=== PATIENT | female | born 1965 | race Caucasian/White ===

== ENCOUNTER 2023-02-09 14:34 | Emergency (ER) | payer OTHER ==
[~2023-02-09] VITALS: Ht 147.3 cm; Wt 74.8 kg
[2023-02-09] MEDS ORDERED: IBUPROFEN 800 MG TABLET PO ONE (15:15)
[2023-02-09 15:16] VITALS: BP_SYST 148
[2023-02-09] MEDS ORDERED: DICL20GE TP (17:42)
[2023-02-09] MEDS ORDERED: IBUP-1971 PO (17:42)
[2023-02-09] MEDS ORDERED: IBUPROFEN 800 MG TABLET ONE (17:46)
[2023-02-09 17:51] VITALS: BP_SYST 132
== END 2023-02-09 17:51 | disposition home or self-care (01) ==
LOC: SED 14:34
DX: S46.912A Strain of unspecified muscle, fascia and tendon at shoulder and upper arm level, left arm, initial encounter (principal); Z79.899 Other long term (current) drug therapy; X50.0XXA Overexertion from strenuous movement or load, initial encounter; Y93.89 Activity, other specified; Y92.89 Other specified places as the place of occurrence of the external cause; Y99.8 Other external cause status
CPT/HCPCS: 73030; 93971; 99284

== ENCOUNTER 2023-04-06 21:12 | Emergency (ER) | payer OTHER ==
[~2023-04-06] VITALS: Ht 147.3 cm; Wt 68.0 kg
[~2023-04-06 21:12] MED LIST: DICL20GE TP; IBUP-1971 PO
[2023-04-06 21:15] VITALS: BP_SYST 139
--- NOTE | 2023-04-06 21:17 | NUR ---
Patient triaged and placed in ER bed 5. Bed placed in lowest position and side rails up. Report given to Shanel MONTOYA for continuity of care. Instructed patient to notify ED staff for any changes in condition or worsening of symptoms while waiting to be seen by a provider. Patient verbalized understanding.
--- NOTE | 2023-04-06 21:47 | NUR ---
Dr. Ashraf at bedside examining the patient.
--- NOTE | 2023-04-06 22:09 | NUR ---
Patient taken to CT.
--- NOTE | 2023-04-06 22:17 | NUR ---
Patient is back from CT.
[2023-04-06 22:33] LABS: ANION GAP 9 (5-15); CALCIUM 8.8 mg/dL (8.4-11.0); CHLORIDE 102 mmol/L (98-107); CREATININE 0.98 mg/dL (0.55-1.30); GFR AFRICAN AMERICAN 75 mL/min (>90); GLUCOSE 112 mg/dL (70-99); UREA NITROGEN, BLOOD 23 mg/dL (8-21)
[2023-04-06 22:41] LABS: ALANINE AMINOTRANSFERASE 42 U/L (12-78); ALBUMIN 3.6 g/dL (3.4-4.8); ASPARTATE AMINOTRANSFERASE 31 U/L (10-37); BASOPHILS % (AUTO) 0.7 % (0.0-2.0); EOSINOPHILS # (AUTO) 0.2 K/uL (0.0-0.4); EOSINOPHILS % (AUTO) 2.6 % (0.0-4.0); HEMATOCRIT 39.4 % (36-48); HEMOGLOBIN 13.3 g/dL (12.0-16.0); LYMPHOCYTES # (AUTO) 2.5 K/uL (1.0-5.5); LYMPHOCYTES % (AUTO) 36.7 % (20.5-51.5); MEAN CORPUSCULAR HEMOGLOBIN 29 pg (27-31); MEAN CORPUSCULAR HGB CONC 34 % (32-36); MEAN CORPUSCULAR VOLUME 86 fL (79.0-98.0); MONOCYTES # (AUTO) 0.6 K/uL (0.0-1.0); MONOCYTES % (AUTO) 8.2 % (1.7-9.3); NEUTROPHILS # (AUTO) 3.5 K/uL (1.8-7.7); NEUTROPHILS % (AUTO) 51.8 % (40.0-70.0); PLATELET COUNT (AUTO) 278 K/uL (130-430); RED BLOOD CELL COUNT(AUTO) 4.58 MIL/uL (4.2-6.2); RED CELL DISTRIBUTION WIDTH 14.1 % (9.0-15.0); TOTAL BILIRUBIN 0.2 mg/dL (0.0-1.0); WHITE BLOOD COUNT (AUTO) 6.7 K/uL (4.8-10.8)
--- NOTE | 2023-04-06 23:05 | NUR ---
Dr. Landrum at bedside examining the patient.
[2023-04-06 23:24] VITALS: BP_SYST 123
--- NOTE | 2023-04-06 23:25 | NUR ---
Patient given written and verbal discharge instructions and verbalizes understanding. ER MD discussed with patient the results and treatment provided. Patient in stable condition. ID arm band removed. NO Rx given. Patient educated on pain management and to follow up with PMD. Pain Scale 0/10. Opportunity for questions provided and answered. Medication side effect fact sheet provided.
== END 2023-04-06 23:25 | disposition home or self-care (01) ==
LOC: SED 21:12
DX: R20.0 Anesthesia of skin (principal); M25.512 Pain in left shoulder; Z79.899 Other long term (current) drug therapy
CPT/HCPCS: 36415; 70450-TC; 71045; 76376; 80053; 84484; 85025; 93005; 99285